=== PATIENT | male | born 1955 | race Caucasian/White ===

== ENCOUNTER 2018-11-26 16:19 | Emergency (ER) | payer OTHER ==
[2018-11-26] MEDS ORDERED: Bupivacaine 0.5% 10 ML SDV INJECT ONE (16:20)
[2018-11-26] MEDS ORDERED: Diphtheria,Pertussis(Acell),Tetanus Vaccine 0.5 ML SDV IM ONE (16:35)
[2018-11-26] MEDS ORDERED: cefTRIAXone 1 GM Vial IM ONE (16:35)
--- NOTE | 2018-11-26 16:39 | EDM.PDOC ---
ED HPI GENERAL MEDICAL PROBLEM - General Stated Complaint: CUT FINGER Time Seen by Provider: 11/26/18 16:19 Source of Information: Reports: Patient, Family History Limitations: Reports: No Limitations - History of Present Illness INITIAL COMMENTS - FREE TEXT/NARRATIVE: 62 y.o.w.m came to the ed shortly after he injured his left index finger tip on a machine at his home. Wound was initially bleeding. Bleeding subsided [employer]. Pt has no DM. No Loss of function of his finger. No N/V/D, No SOB or chest pain. No other acute med issues. 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 02/17/13 11:03 Shock Home Meds: Home Meds Mirtazapine [Remeron] 1 tab PO BEDTIME 02/17/13 [History] Amoxicillin/Clavulanate K [Augmentin 500-125 MG] 1 tab PO Q12H #14 tablet [Rx] Cephalexin [Keflex] 500 mg PO Q6HR #40 capsule 11/26/18 [Rx] Review of Systems - Review of Systems Review Of Systems: See Below Constitutional: Reports: No Symptoms Eyes: Reports: No Symptoms Ears: Reports: No Symptoms Nose: Reports: No Symptoms Mouth/Throat: Reports: No Symptoms Respiratory: Reports: No Symptoms Cardiovascular: Reports: No Symptoms GI/Abdominal: Reports: No Symptoms Genitourinary: Reports: No Symptoms Musculoskeletal: Reports: No Symptoms Skin: Reports: Wound (left index finger) Neurological: Reports: No Symptoms Psychiatric: Reports: No Symptoms ED EXAM, GENERAL - Physical Exam Exam: See Below Exam Limited By: No Limitations General Appearance: Alert, WD/WN, Mild Distress Eye Exam: Bilateral Eye: Normal Inspection Ears: Normal External Exam Ear Exam: Bilateral Ear: Auricle Normal Nose: Normal Inspection Throat/Mouth: Normal Inspection, Normal Lips, Normal Voice, No Airway Compromise Head: Atraumatic, Normocephalic Neck: Normal Inspection, Supple, Non-Tender Respiratory/Chest: No Respiratory Distress, Lungs Clear, Normal Breath Sounds, Chest Non-Tender Cardiovascular: Normal Peripheral Pulses, Regular Rate, Rhythm, No JVD Peripheral Pulses: 2+: Brachial (R) GI/Abdominal: Normal Bowel Sounds (Male) Exam: Deferred Rectal (Males) Exam: Deferred Back Exam: Normal Inspection Extremities: Normal Range of Motion, Non-Tender, Normal Capillary Refill Neurological: Alert, Oriented, CN II-XII Intact, Normal Cognition, Normal Gait Psychiatric: Normal Affect, Normal Mood Skin Exam: Warm, Dry, Normal Color, Wound/Incision (finger tip left index finger LAC) Lymphatic: No Adenopathy ED TRAUMA EXTREMITY PROCEDURES - Laceration/Wound Repair Left Distal Digit - 2nd (Index) Lac/Wound Length In cm: 1.2 Appearance: Subcutaneous, Irregular, Mildly Contaminated Distal NVT: Neuro & Vascular Intact, No Tendon Injury Anesthetic Type: Digital Local Anesthesia - Bupivicaine (Marcaine): 0.5% Plain Local Anesthetic Volume: 5cc Skin Prep: Chlorhexidine (Hibiciens) Saline Irrigation (cc's): 10 Exploration/Debridement/Repair: Wound Explored, In a Bloodless Field, Explored to Base Closed With: Sutures Suture Size: 4-0 # of Sutures: 4 Suture Type: Interrupted Sterile Dressing Applied: Nurse Tetanus Status Addressed: Yes (given today) Complications: No Course - Vital Signs Text/Narrative:: 62 y.o.w.m came to the ed shortly after he injured his left index finger tip on a machine at his home. Wound was initially bleeding. Bleeding subsided [employer]. Pt has no DM. No Loss of function of his finger. No N/V/D, No SOB or chest pain. No other acute med issues. BP 144/75 Pulse ox 97% on RA RR 18 Pulse 93 Temp 36.7 PE: WNWD W M with left index finger tip LAC, Nail involved Imaging: Minor Fx of left index finger tip (distal phalanx) Impression: Laceration left index finger tip, repaired in the ed TxL TD. Deyanira Wound repair/care. Neosporine, Tube gaze Reexam: Improved Plan: D/C with instructions Last Recorded V/S: Last Vital Signs Temp 36.4 C 11/26/18 16:22 Pulse 93 11/26/18 16:22 Resp 18 11/26/18 16:22 BP 144/75 H 11/26/18 16:22 Pulse Ox 97 11/26/18 16:22 - Orders/Labs/Meds Orders: Active Orders 24 hr Category Date Time Status Vaccines to be Administered [RC] PER UNIT ROUTINE Care 11/26/18 16:36 Active Fingers Second Digit Lt F1 [CR] Stat Exams 11/26/18 16:32 Taken Meds: Medications Discontinued Medications Generic Name Dose Route Start Last Admin Trade Name Maryjo PRN Reason Stop Dose Admin Ceftriaxone Sodium 1 gm 11/26/18 16:35 Rocephin IM 11/26/18 16:36 ONETIME ONE Diphtheria/Tetanus/Acell Pertussis 0.5 ml 11/26/18 16:35 Adacel IM 11/26/18 16:36 .ONCE ONE Departure - Departure Time of Disposition: 18:19 Disposition: Home, Self-Care 01 Condition: Good Clinical Impression: Laceration - Discharge Information Prescriptions: Cephalexin [Keflex] 500 mg PO Q6HR #40 capsule Referrals: Aden Ryan MD [Primary Care Provider] - Additional Instructions: Please apply Neosporin ointment to wound twice daily, please take Keflex as recommended, wound check in 2-3 days, suture removal in 10 dais if wound has healed up. Motrin for pain. Please come back if your symptoms get worse acutely - My Orders Last 24 Hours: My Active Orders 11/26/18 16:32 Fingers Second Digit Lt F1 [CR] Stat 11/26/18 16:36 Vaccines to be Administered [RC] PER UNIT ROUTINE - Assessment/Plan Last 24 Hours: My Active Orders 11/26/18 16:32 Fingers Second Digit Lt F1 [CR] Stat 11/26/18 16:36 Vaccines to be Administered [RC] PER UNIT ROUTINE
[2018-11-26 19:16] VITALS: BP 140/68; PULSE 73
== END 2018-11-26 18:50 | disposition home or self-care (01) ==
LOC: FB.ED 16:19
DX: S61.211A Laceration without foreign body of left index finger without damage to nail, initial encounter (principal); Z23 Encounter for immunization; Z91.018 Allergy to other foods; W29.2XXA Contact with other powered household machinery, initial encounter
CPT/HCPCS: 12001; 73140; 90471; 90715; 96372; 99283; J0696; J3490; 12011

== ENCOUNTER 2022-03-04 09:43 | Inpatient (IN) | payer MEDICARE, OTHER ==
[2022-03-04] MEDS ORDERED: hydrOXYzine HCl 25 MG Tab PO PRN (16:09)
[2022-03-04] MEDS ORDERED: ALPRAZolam 0.25 MG Tab PO PRN (16:09)
[2022-03-04] MEDS: Tamsulosin 0.4 MG Cap.ER PO SCH (21:15)
[2022-03-04] MEDS: atorvaSTATin 20 MG Tab PO SCH (21:16)
[2022-03-04] MEDS: Mirtazapine 15 MG Tab PO SCH (21:16)
[2022-03-04] MEDS: metFORMIN 500 MG Tab PO SCH (21:16)
[2022-03-05] MEDS: metFORMIN 500 MG Tab PO SCH ×2 (09:24→20:00)
[2022-03-05] MEDS: FLUoxetine 20 MG Cap PO SCH (09:25)
[2022-03-05] MEDS: predniSONE 20 MG Tab PO SCH ×2 (09:25→14:30)
[2022-03-05] MEDS: Lisinopril 10 MG Tab PO SCH (09:25)
[2022-03-05] MEDS: Multivitamin Tab PO SCH (09:25)
[2022-03-05] MEDS: Tamsulosin 0.4 MG Cap.ER PO SCH (19:59)
[2022-03-05] MEDS: Mirtazapine 15 MG Tab PO SCH (19:59)
[2022-03-05] MEDS: atorvaSTATin 20 MG Tab PO SCH (19:59)
[2022-03-06] MEDS: metFORMIN 500 MG Tab PO SCH ×2 (08:20→20:35)
[2022-03-06] MEDS: predniSONE 20 MG Tab PO SCH ×2 (08:20→14:20)
[2022-03-06] MEDS: FLUoxetine 20 MG Cap PO SCH (08:21)
[2022-03-06] MEDS: Lisinopril 10 MG Tab PO SCH (08:21)
[2022-03-06] MEDS: Multivitamin Tab PO SCH (08:22)
[2022-03-06] MEDS: atorvaSTATin 20 MG Tab PO SCH (20:18)
[2022-03-06] MEDS: Tamsulosin 0.4 MG Cap.ER PO SCH (20:18)
[2022-03-06] MEDS: Mirtazapine 15 MG Tab PO SCH (20:35)
[2022-03-07] MEDS: Lisinopril 10 MG Tab PO SCH (08:31)
[2022-03-07] MEDS: Multivitamin Tab PO SCH (08:31)
[2022-03-07] MEDS: metFORMIN 500 MG Tab PO SCH ×2 (08:31→20:06)
[2022-03-07] MEDS: predniSONE 20 MG Tab PO SCH ×2 (08:31→14:00)
[2022-03-07] MEDS: FLUoxetine 20 MG Cap PO SCH (08:31)
[2022-03-07] MEDS: atorvaSTATin 20 MG Tab PO SCH (20:05)
[2022-03-07] MEDS: Tamsulosin 0.4 MG Cap.ER PO SCH (20:06)
[2022-03-07] MEDS: Acetaminophen 325 MG Tab PO PRN (20:07)
[2022-03-07] MEDS: Mirtazapine 15 MG Tab PO SCH (20:07)
[2022-03-08] MEDS: metFORMIN 500 MG Tab PO SCH ×2 (08:47→20:31)
[2022-03-08] MEDS: Lisinopril 10 MG Tab PO SCH (08:48)
[2022-03-08] MEDS: predniSONE 20 MG Tab PO SCH (08:48)
[2022-03-08] MEDS: FLUoxetine 20 MG Cap PO SCH (08:48)
[2022-03-08] MEDS: Multivitamin Tab PO SCH (08:48)
[2022-03-08] MEDS: Acetaminophen 325 MG Tab PO PRN (13:41)
[2022-03-08] MEDS: Tamsulosin 0.4 MG Cap.ER PO SCH (20:31)
[2022-03-08] MEDS: atorvaSTATin 20 MG Tab PO SCH (20:31)
[2022-03-08] MEDS: Mirtazapine 15 MG Tab PO SCH (20:31)
[2022-03-09] MEDS: FLUoxetine 20 MG Cap PO SCH (08:34)
[2022-03-09] MEDS: Lisinopril 10 MG Tab PO SCH (08:34)
[2022-03-09] MEDS: predniSONE 20 MG Tab PO SCH (08:34)
[2022-03-09] MEDS: metFORMIN 500 MG Tab PO SCH ×2 (08:34→20:54)
[2022-03-09] MEDS: Multivitamin Tab PO SCH (08:35)
[2022-03-09] MEDS: Acetaminophen 325 MG Tab PO PRN (13:57)
[2022-03-09] MEDS: Mirtazapine 15 MG Tab PO SCH (20:53)
[2022-03-09] MEDS: Tamsulosin 0.4 MG Cap.ER PO SCH (20:53)
[2022-03-09] MEDS: atorvaSTATin 20 MG Tab PO SCH (20:53)
[2022-03-10] MEDS: Lisinopril 10 MG Tab PO SCH (08:06)
[2022-03-10] MEDS: predniSONE 20 MG Tab PO SCH (08:06)
[2022-03-10] MEDS: Multivitamin Tab PO SCH (08:06)
[2022-03-10] MEDS: FLUoxetine 20 MG Cap PO SCH (08:07)
[2022-03-10] MEDS: metFORMIN 500 MG Tab PO SCH ×2 (08:07→20:37)
[2022-03-10] MEDS: atorvaSTATin 20 MG Tab PO SCH (20:37)
[2022-03-10] MEDS: Mirtazapine 15 MG Tab PO SCH (20:37)
[2022-03-10] MEDS: Tamsulosin 0.4 MG Cap.ER PO SCH (20:37)
[2022-03-11] MEDS: FLUoxetine 20 MG Cap PO SCH (08:06)
[2022-03-11] MEDS: predniSONE 10 MG Tab PO SCH (08:06)
[2022-03-11] MEDS: metFORMIN 500 MG Tab PO SCH ×2 (08:07→21:01)
[2022-03-11] MEDS: Multivitamin Tab PO SCH (08:07)
[2022-03-11] MEDS: Lisinopril 10 MG Tab PO SCH (08:07)
[2022-03-11] MEDS: Mirtazapine 15 MG Tab PO SCH (21:01)
[2022-03-11] MEDS: atorvaSTATin 20 MG Tab PO SCH (21:02)
[2022-03-11] MEDS: Tamsulosin 0.4 MG Cap.ER PO SCH (21:02)
[2022-03-12] MEDS: FLUoxetine 20 MG Cap PO SCH (08:05)
[2022-03-12] MEDS: Multivitamin Tab PO SCH (08:05)
[2022-03-12] MEDS: predniSONE 10 MG Tab PO SCH (08:06)
[2022-03-12] MEDS: metFORMIN 500 MG Tab PO SCH ×2 (08:06→20:46)
[2022-03-12] MEDS: Lisinopril 10 MG Tab PO SCH (08:11)
[2022-03-12] MEDS: Acetaminophen 325 MG Tab PO PRN (15:20)
[2022-03-12] MEDS: Mirtazapine 15 MG Tab PO SCH (20:46)
[2022-03-12] MEDS: Tamsulosin 0.4 MG Cap.ER PO SCH (20:46)
[2022-03-12] MEDS: atorvaSTATin 20 MG Tab PO SCH (20:46)
[2022-03-13 07:11] VITALS: PULSE 63
[2022-03-13] MEDS: predniSONE 10 MG Tab PO SCH (08:45)
[2022-03-13] MEDS: Lisinopril 10 MG Tab PO SCH (08:45)
[2022-03-13] MEDS: metFORMIN 500 MG Tab PO SCH (08:45)
[2022-03-13] MEDS: Multivitamin Tab PO SCH (08:46)
[2022-03-13] MEDS: FLUoxetine 20 MG Cap PO SCH (08:46)
[2022-03-13 08:47] VITALS: BP 139/69
== END 2022-03-13 13:45 | disposition home health service (06) | DRG 948 ==
LOC: FB.MS 12:24
PROVIDERS: ADMIT Student in an Organized Health Care Education/Training Program; ATTEND Family Medicine
DX: R53.1 Weakness (principal); E11.9 Type 2 diabetes mellitus without complications; F32.A Depression, unspecified; I10 Essential (primary) hypertension; M48.061 Spinal stenosis, lumbar region without neurogenic claudication; U09.9 Post COVID-19 condition, unspecified; E66.01 Morbid (severe) obesity due to excess calories; M54.50 Low back pain, unspecified; Z85.46 Personal history of malignant neoplasm of prostate; Z79.84 Long term (current) use of oral hypoglycemic drugs; Z87.891 Personal history of nicotine dependence; Z68.32 Body mass index [BMI] 32.0-32.9, adult
CPT/HCPCS: 82947; 97110-GO; 97110-GP; 97161-GP; 97165-GO; 97530-GO; 97530-GP; 97535-GO; A9270-GY; J7512

== ENCOUNTER 2022-05-19 08:40 | Inpatient (IN) | payer MEDICARE ==
[2022-05-19] MEDS ORDERED: Acetaminophen 325 MG Tab PO PRN (14:25)
[2022-05-19] MEDS ORDERED: ALPRAZolam 0.25 MG Tab PO PRN (14:25)
[2022-05-19] MEDS ORDERED: NALOXONE HCL 4 MG NAS PRN (14:25)
[2022-05-19] MEDS ORDERED: Naloxone 0.4 MG/ML SDV IVPUSH PRN (14:44)
[2022-05-19] MEDS: oxyCODONE 5 MG Tab PO PRN (14:56)
[2022-05-19] MEDS: Cyclobenzaprine 10 MG Tab PO PRN (15:06)
[2022-05-19] MEDS: cefTRIAXone 2 GM Vial IVPUSH SCH (15:08)
[2022-05-19] MEDS: Sodium Chloride 0.9% 10 ML Syringe FLUSH PRN (15:20)
[2022-05-19] MEDS: Ibuprofen 200 MG Tab PO SCH ×2 (17:07→23:08)
[2022-05-19] MEDS: Acetaminophen 500 MG Tab PO SCH ×2 (17:08→23:08)
[2022-05-19] MEDS: metFORMIN 500 MG Tab PO SCH (20:08)
[2022-05-19] MEDS: Mirtazapine 15 MG Tab PO SCH (20:10)
[2022-05-20] MEDS: Cyclobenzaprine 10 MG Tab PO PRN ×2 (01:37→08:35)
[2022-05-20] MEDS: oxyCODONE 5 MG Tab PO PRN ×2 (01:37→08:38)
[2022-05-20] MEDS: hydrOXYzine HCl 25 MG Tab PO PRN ×3 (02:48→20:54)
[2022-05-20] MEDS: ALPRAZolam 0.25 MG Tab PO PRN ×2 (04:44→12:49)
[2022-05-20] MEDS: Acetaminophen 500 MG Tab PO SCH ×4 (05:00→20:41)
[2022-05-20] MEDS: Ibuprofen 200 MG Tab PO SCH ×4 (05:00→20:45)
[2022-05-20] MEDS: metFORMIN 500 MG Tab PO SCH ×2 (08:32→20:46)
[2022-05-20] MEDS: Tamsulosin 0.4 MG Cap.ER PO SCH (08:32)
[2022-05-20] MEDS: Lisinopril 10 MG Tab PO SCH (08:33)
[2022-05-20] MEDS: atorvaSTATin 20 MG Tab PO SCH (08:33)
[2022-05-20] MEDS: Multivitamin Tab PO SCH (08:34)
[2022-05-20] MEDS: FLUoxetine 20 MG Cap PO SCH (08:34)
[2022-05-20] MEDS ORDERED: fentaNYL 25 MCG/HR Transdermal Patch TRDERM SCH (12:45)
[2022-05-20] MEDS: Bisacodyl 5 MG Tab PO PRN (12:48)
[2022-05-20] MEDS: Polyethylene Glycol 3350 Powder 17 GM Packet PO SCH ×2 (12:48→20:40)
[2022-05-20] MEDS: Baclofen 10 MG Tab PO SCH ×2 (14:10→20:43)
[2022-05-20] MEDS: Sodium Chloride 0.9% 10 ML Syringe FLUSH PRN (14:28)
[2022-05-20] MEDS: cefTRIAXone 2 GM Vial IVPUSH SCH (14:29)
[2022-05-20] MEDS: ALPRAZolam 0.5 MG Tab PO PRN (16:49)
[2022-05-20] MEDS: Mirtazapine 15 MG Tab PO SCH (20:46)
[2022-05-21] MEDS: ALPRAZolam 0.5 MG Tab PO PRN (02:09)
[2022-05-21] MEDS: oxyCODONE 5 MG Tab PO PRN ×2 (02:09→08:37)
[2022-05-21] MEDS: Tamsulosin 0.4 MG Cap.ER PO SCH (08:31)
[2022-05-21] MEDS: metFORMIN 500 MG Tab PO SCH ×2 (08:31→20:40)
[2022-05-21] MEDS: Polyethylene Glycol 3350 Powder 17 GM Packet PO SCH ×2 (08:32→20:41)
[2022-05-21] MEDS: atorvaSTATin 20 MG Tab PO SCH (08:32)
[2022-05-21] MEDS: Baclofen 10 MG Tab PO SCH ×3 (08:32→20:40)
[2022-05-21] MEDS: Ibuprofen 200 MG Tab PO SCH ×4 (08:33→20:41)
[2022-05-21] MEDS: Lisinopril 10 MG Tab PO SCH (08:36)
[2022-05-21] MEDS: FLUoxetine 20 MG Cap PO SCH (08:36)
[2022-05-21] MEDS: Acetaminophen 500 MG Tab PO SCH ×4 (08:36→20:42)
[2022-05-21] MEDS: Multivitamin Tab PO SCH (08:36)
[2022-05-21] MEDS: hydrOXYzine HCl 25 MG Tab PO PRN (08:37)
[2022-05-21] MEDS: Sodium Chloride 0.9% 10 ML Syringe FLUSH PRN ×2 (15:00→15:01)
[2022-05-21] MEDS: cefTRIAXone 2 GM Vial IVPUSH SCH (15:00)
[2022-05-21] MEDS: fentaNYL 12 MCG/HR Transdermal Patch TRDERM SCH (16:31)
[2022-05-21] MEDS: Mirtazapine 15 MG Tab PO SCH (20:41)
[2022-05-22] MEDS: oxyCODONE 5 MG Tab PO PRN (05:20)
[2022-05-22] MEDS: FLUoxetine 20 MG Cap PO SCH (08:41)
[2022-05-22] MEDS: metFORMIN 500 MG Tab PO SCH ×2 (08:41→20:57)
[2022-05-22] MEDS: Baclofen 10 MG Tab PO SCH ×3 (08:41→20:57)
[2022-05-22] MEDS: Lisinopril 10 MG Tab PO SCH (08:41)
[2022-05-22] MEDS: Tamsulosin 0.4 MG Cap.ER PO SCH (08:41)
[2022-05-22] MEDS: atorvaSTATin 20 MG Tab PO SCH (08:41)
[2022-05-22] MEDS: Ibuprofen 200 MG Tab PO SCH ×4 (08:41→20:57)
[2022-05-22] MEDS: Acetaminophen 500 MG Tab PO SCH ×4 (08:42→20:58)
[2022-05-22] MEDS: Polyethylene Glycol 3350 Powder 17 GM Packet PO SCH ×2 (08:42→20:57)
[2022-05-22] MEDS: Multivitamin Tab PO SCH (08:42)
[2022-05-22] MEDS: Bisacodyl 5 MG Tab PO PRN (08:46)
[2022-05-22] MEDS ORDERED: Baclofen 10 MG Tab PO PRN (13:21)
[2022-05-22] MEDS: Sodium Chloride 0.9% 10 ML Syringe FLUSH PRN (14:47)
[2022-05-22] MEDS: cefTRIAXone 2 GM Vial IVPUSH SCH (14:48)
[2022-05-22] MEDS: ALPRAZolam 0.5 MG Tab PO PRN (14:52)
[2022-05-22] MEDS: Mirtazapine 15 MG Tab PO SCH (20:58)
[2022-05-23] MEDS: oxyCODONE 5 MG Tab PO PRN ×2 (04:13→15:33)
[2022-05-23] MEDS ORDERED: FENTANYL PATCH TRDERM SCH (09:00)
[2022-05-23] MEDS ORDERED: fentaNYL 25 MCG/HR Transdermal Patch TRDERM SCH (09:00)
[2022-05-23] MEDS: Tamsulosin 0.4 MG Cap.ER PO SCH (09:02)
[2022-05-23] MEDS: metFORMIN 500 MG Tab PO SCH ×2 (09:03→21:16)
[2022-05-23] MEDS: Baclofen 10 MG Tab PO SCH ×3 (09:06→21:17)
[2022-05-23] MEDS: Ibuprofen 200 MG Tab PO SCH ×4 (09:13→21:17)
[2022-05-23] MEDS: Acetaminophen 500 MG Tab PO SCH ×4 (09:14→21:18)
[2022-05-23] MEDS: Lisinopril 10 MG Tab PO SCH (09:16)
[2022-05-23] MEDS: FLUoxetine 20 MG Cap PO SCH (09:19)
[2022-05-23] MEDS: Multivitamin Tab PO SCH (09:20)
[2022-05-23] MEDS: atorvaSTATin 20 MG Tab PO SCH (09:30)
[2022-05-23] MEDS: Polyethylene Glycol 3350 Powder 17 GM Packet PO SCH ×2 (09:31→21:21)
[2022-05-23] MEDS: ALPRAZolam 0.5 MG Tab PO PRN (10:18)
[2022-05-23] MEDS: cefTRIAXone 2 GM Vial IVPUSH SCH (14:32)
[2022-05-23] MEDS: Sodium Chloride 0.9% 10 ML Syringe FLUSH PRN ×2 (14:32→14:33)
[2022-05-23] MEDS: hydrOXYzine HCl 25 MG Tab PO SCH ×2 (19:35→21:16)
[2022-05-23] MEDS: Mirtazapine 15 MG Tab PO SCH (21:17)
[2022-05-24] MEDS: oxyCODONE 5 MG Tab PO PRN (07:41)
[2022-05-24] MEDS: Tamsulosin 0.4 MG Cap.ER PO SCH (09:12)
[2022-05-24] MEDS: metFORMIN 500 MG Tab PO SCH ×2 (09:12→20:46)
[2022-05-24] MEDS: Baclofen 10 MG Tab PO SCH ×3 (09:13→20:47)
[2022-05-24] MEDS: Ibuprofen 200 MG Tab PO SCH ×4 (09:13→20:47)
[2022-05-24] MEDS: atorvaSTATin 20 MG Tab PO SCH (09:13)
[2022-05-24] MEDS: Polyethylene Glycol 3350 Powder 17 GM Packet PO SCH ×2 (09:13→20:48)
[2022-05-24] MEDS: Multivitamin Tab PO SCH (09:14)
[2022-05-24] MEDS: Acetaminophen 500 MG Tab PO SCH ×4 (09:14→20:46)
[2022-05-24] MEDS: FLUoxetine 20 MG Cap PO SCH (09:14)
[2022-05-24] MEDS: Lisinopril 10 MG Tab PO SCH (09:14)
[2022-05-24] MEDS: hydrOXYzine HCl 25 MG Tab PO SCH ×2 (10:18→20:51)
[2022-05-24] MEDS: cefTRIAXone 2 GM Vial IVPUSH SCH (14:30)
[2022-05-24] MEDS: Sodium Chloride 0.9% 10 ML Syringe FLUSH PRN ×2 (14:31→14:32)
[2022-05-24] MEDS: fentaNYL 12 MCG/HR Transdermal Patch TRDERM SCH (16:12)
[2022-05-24] MEDS: Mirtazapine 15 MG Tab PO SCH (20:47)
[2022-05-25] MEDS: Sodium Chloride 0.9% 10 ML Syringe FLUSH PRN ×3 (06:30→13:37)
[2022-05-25] MEDS: oxyCODONE 5 MG Tab PO PRN (06:42)
[2022-05-25 06:55] LABS: ESTIMATED GFR 74 mL/min (>60)
[2022-05-25] MEDS: metFORMIN 500 MG Tab PO SCH ×2 (08:28→20:59)
[2022-05-25] MEDS: Tamsulosin 0.4 MG Cap.ER PO SCH (08:28)
[2022-05-25] MEDS: hydrOXYzine HCl 25 MG Tab PO SCH (08:28)
[2022-05-25] MEDS: atorvaSTATin 20 MG Tab PO SCH (08:29)
[2022-05-25] MEDS: Baclofen 10 MG Tab PO SCH ×3 (08:29→21:00)
[2022-05-25] MEDS: Polyethylene Glycol 3350 Powder 17 GM Packet PO SCH ×2 (08:30→21:02)
[2022-05-25] MEDS: Lisinopril 10 MG Tab PO SCH (08:30)
[2022-05-25] MEDS: Ibuprofen 200 MG Tab PO SCH ×4 (08:30→21:00)
[2022-05-25] MEDS: FLUoxetine 20 MG Cap PO SCH (08:31)
[2022-05-25] MEDS: Multivitamin Tab PO SCH (08:31)
[2022-05-25] MEDS: Acetaminophen 500 MG Tab PO SCH ×4 (08:31→21:00)
[2022-05-25] MEDS ORDERED: hydrOXYzine HCl 25 MG Tab PO ONE (09:45)
[2022-05-25] MEDS: ALPRAZolam 0.5 MG Tab PO PRN (12:01)
[2022-05-25] MEDS: cefTRIAXone 2 GM Vial IVPUSH SCH (13:32)
[2022-05-25] MEDS: Mirtazapine 15 MG Tab PO SCH (21:00)
[2022-05-25] MEDS: Bisacodyl 5 MG Tab PO PRN (22:53)
[2022-05-26] MEDS: oxyCODONE 5 MG Tab PO PRN (05:51)
[2022-05-26] MEDS: Tamsulosin 0.4 MG Cap.ER PO SCH (09:01)
[2022-05-26] MEDS: metFORMIN 500 MG Tab PO SCH ×2 (09:01→20:23)
[2022-05-26] MEDS: Polyethylene Glycol 3350 Powder 17 GM Packet PO SCH ×2 (09:03→20:25)
[2022-05-26] MEDS: Baclofen 10 MG Tab PO SCH ×3 (09:03→20:24)
[2022-05-26] MEDS: atorvaSTATin 20 MG Tab PO SCH (09:03)
[2022-05-26] MEDS: FLUoxetine 20 MG Cap PO SCH (09:04)
[2022-05-26] MEDS: Ibuprofen 200 MG Tab PO SCH ×4 (09:04→20:26)
[2022-05-26] MEDS: Acetaminophen 500 MG Tab PO SCH ×4 (09:05→20:26)
[2022-05-26] MEDS: Multivitamin Tab PO SCH (09:05)
[2022-05-26] MEDS: Lisinopril 10 MG Tab PO SCH (09:08)
[2022-05-26] MEDS: Lactulose Soln 10 GM/15 ML 30 ML UD Cup PO SCH ×2 (09:35→13:57)
[2022-05-26] MEDS ORDERED: Bisacodyl 10 MG Supp RECTAL PRN (13:02)
[2022-05-26] MEDS: cefTRIAXone 2 GM Vial IVPUSH SCH (13:57)
[2022-05-26] MEDS: Sodium Chloride 0.9% 10 ML Syringe FLUSH PRN (13:58)
[2022-05-26] MEDS: Mirtazapine 15 MG Tab PO SCH (20:27)
[2022-05-27] MEDS: oxyCODONE 5 MG Tab PO PRN ×2 (03:32→09:51)
[2022-05-27] MEDS: Lisinopril 10 MG Tab PO SCH (07:59)
[2022-05-27] MEDS: atorvaSTATin 20 MG Tab PO SCH (07:59)
[2022-05-27] MEDS: Baclofen 10 MG Tab PO SCH ×3 (07:59→20:40)
[2022-05-27] MEDS: Tamsulosin 0.4 MG Cap.ER PO SCH (07:59)
[2022-05-27] MEDS: metFORMIN 500 MG Tab PO SCH ×2 (07:59→20:40)
[2022-05-27] MEDS: Acetaminophen 500 MG Tab PO SCH ×4 (08:00→20:43)
[2022-05-27] MEDS: Ibuprofen 200 MG Tab PO SCH ×4 (08:00→20:41)
[2022-05-27] MEDS: Polyethylene Glycol 3350 Powder 17 GM Packet PO SCH ×2 (08:02→20:41)
[2022-05-27] MEDS: Multivitamin Tab PO SCH (08:03)
[2022-05-27] MEDS: FLUoxetine 20 MG Cap PO SCH (08:03)
[2022-05-27] MEDS: Sodium Chloride 0.9% 10 ML Syringe FLUSH PRN ×2 (14:14→14:25)
[2022-05-27] MEDS: cefTRIAXone 2 GM Vial IVPUSH SCH (14:15)
[2022-05-27] MEDS: Mirtazapine 15 MG Tab PO SCH (20:42)
[2022-05-27] MEDS: ALPRAZolam 0.5 MG Tab PO PRN (23:38)
[2022-05-28] MEDS: Baclofen 10 MG Tab PO SCH ×3 (08:24→21:42)
[2022-05-28] MEDS: Tamsulosin 0.4 MG Cap.ER PO SCH (08:25)
[2022-05-28] MEDS: metFORMIN 500 MG Tab PO SCH ×2 (08:25→21:41)
[2022-05-28] MEDS: Multivitamin Tab PO SCH (08:25)
[2022-05-28] MEDS: atorvaSTATin 20 MG Tab PO SCH (08:25)
[2022-05-28] MEDS: Acetaminophen 500 MG Tab PO SCH ×4 (08:26→21:44)
[2022-05-28] MEDS: FLUoxetine 20 MG Cap PO SCH (08:26)
[2022-05-28] MEDS: Ibuprofen 200 MG Tab PO SCH ×4 (08:26→21:42)
[2022-05-28] MEDS: Polyethylene Glycol 3350 Powder 17 GM Packet PO SCH ×2 (08:26→21:42)
[2022-05-28] MEDS: Lisinopril 10 MG Tab PO SCH (08:26)
[2022-05-28] MEDS: oxyCODONE 5 MG Tab PO PRN (09:39)
[2022-05-28] MEDS: Sodium Chloride 0.9% 10 ML Syringe FLUSH PRN ×2 (14:05→14:16)
[2022-05-28] MEDS: cefTRIAXone 2 GM Vial IVPUSH SCH (14:06)
[2022-05-28] MEDS: Mirtazapine 15 MG Tab PO SCH (21:45)
[2022-05-28] MEDS: ALPRAZolam 0.5 MG Tab PO PRN (21:55)
[2022-05-29] MEDS: Tamsulosin 0.4 MG Cap.ER PO SCH (08:28)
[2022-05-29] MEDS: metFORMIN 500 MG Tab PO SCH ×2 (08:29→21:50)
[2022-05-29] MEDS: Baclofen 10 MG Tab PO SCH ×3 (08:30→21:51)
[2022-05-29] MEDS: atorvaSTATin 20 MG Tab PO SCH (08:30)
[2022-05-29] MEDS: Ibuprofen 200 MG Tab PO SCH ×4 (08:31→21:50)
[2022-05-29] MEDS: Polyethylene Glycol 3350 Powder 17 GM Packet PO SCH ×2 (08:31→21:52)
[2022-05-29] MEDS: Lisinopril 10 MG Tab PO SCH (08:32)
[2022-05-29] MEDS: Multivitamin Tab PO SCH (08:33)
[2022-05-29] MEDS: FLUoxetine 20 MG Cap PO SCH (08:33)
[2022-05-29] MEDS: Acetaminophen 500 MG Tab PO SCH ×4 (08:33→21:50)
[2022-05-29] MEDS: Sodium Chloride 0.9% 10 ML Syringe FLUSH PRN ×2 (14:21→14:26)
[2022-05-29] MEDS: cefTRIAXone 2 GM Vial IVPUSH SCH (14:23)
[2022-05-29] MEDS: Mirtazapine 15 MG Tab PO SCH (21:52)
[2022-05-30] MEDS: oxyCODONE 5 MG Tab PO PRN (05:56)
[2022-05-30] MEDS: Polyethylene Glycol 3350 Powder 17 GM Packet PO SCH ×2 (08:44→20:39)
[2022-05-30] MEDS: Tamsulosin 0.4 MG Cap.ER PO SCH (08:45)
[2022-05-30] MEDS: Acetaminophen 500 MG Tab PO SCH ×4 (08:46→20:41)
[2022-05-30] MEDS: Baclofen 10 MG Tab PO SCH ×3 (08:48→20:37)
[2022-05-30] MEDS: Lisinopril 10 MG Tab PO SCH (08:48)
[2022-05-30] MEDS: metFORMIN 500 MG Tab PO SCH ×2 (08:49→20:36)
[2022-05-30] MEDS: atorvaSTATin 20 MG Tab PO SCH (08:50)
[2022-05-30] MEDS: Ibuprofen 200 MG Tab PO SCH ×4 (08:51→20:39)
[2022-05-30] MEDS: FLUoxetine 20 MG Cap PO SCH (08:51)
[2022-05-30] MEDS: Multivitamin Tab PO SCH (08:52)
[2022-05-30] MEDS: cefTRIAXone 2 GM Vial IVPUSH SCH (13:29)
[2022-05-30] MEDS: Sodium Chloride 0.9% 10 ML Syringe FLUSH PRN (13:45)
[2022-05-30] MEDS: Mirtazapine 15 MG Tab PO SCH (20:42)
[2022-05-31] MEDS: metFORMIN 500 MG Tab PO SCH ×2 (09:31→20:17)
[2022-05-31] MEDS: FLUoxetine 20 MG Cap PO SCH (09:31)
[2022-05-31] MEDS: Acetaminophen 500 MG Tab PO SCH ×4 (09:32→20:21)
[2022-05-31] MEDS: Baclofen 10 MG Tab PO SCH ×3 (09:32→20:18)
[2022-05-31] MEDS: Tamsulosin 0.4 MG Cap.ER PO SCH (09:32)
[2022-05-31] MEDS: Multivitamin Tab PO SCH (09:33)
[2022-05-31] MEDS: Ibuprofen 200 MG Tab PO SCH ×4 (09:34→20:18)
[2022-05-31] MEDS: atorvaSTATin 20 MG Tab PO SCH (09:35)
[2022-05-31] MEDS: Lisinopril 10 MG Tab PO SCH (09:35)
[2022-05-31] MEDS: Polyethylene Glycol 3350 Powder 17 GM Packet PO SCH ×2 (09:36→20:18)
[2022-05-31] MEDS: Sodium Chloride 0.9% 10 ML Syringe FLUSH PRN ×2 (14:35→14:43)
[2022-05-31] MEDS: cefTRIAXone 2 GM Vial IVPUSH SCH (14:35)
[2022-05-31] MEDS: oxyCODONE 5 MG Tab PO PRN (16:31)
[2022-05-31] MEDS: Mirtazapine 15 MG Tab PO SCH (20:20)
[2022-06-01 06:58] LABS: ESTIMATED GFR 74 mL/min (>60)
[2022-06-01] MEDS: Tamsulosin 0.4 MG Cap.ER PO SCH (08:00)
[2022-06-01] MEDS: metFORMIN 500 MG Tab PO SCH ×2 (08:00→21:41)
[2022-06-01] MEDS: Ibuprofen 200 MG Tab PO SCH ×4 (08:01→21:42)
[2022-06-01] MEDS: Baclofen 10 MG Tab PO SCH ×3 (08:01→21:41)
[2022-06-01] MEDS: atorvaSTATin 20 MG Tab PO SCH (08:01)
[2022-06-01] MEDS: Acetaminophen 500 MG Tab PO SCH ×4 (08:03→21:44)
[2022-06-01] MEDS: Multivitamin Tab PO SCH (08:03)
[2022-06-01] MEDS: FLUoxetine 20 MG Cap PO SCH (08:03)
[2022-06-01] MEDS: Lisinopril 10 MG Tab PO SCH (08:03)
[2022-06-01] MEDS: Polyethylene Glycol 3350 Powder 17 GM Packet PO SCH ×3 (08:04→21:46)
[2022-06-01] MEDS: cefTRIAXone 2 GM Vial IVPUSH SCH (13:07)
[2022-06-01] MEDS: Sodium Chloride 0.9% 10 ML Syringe FLUSH PRN (13:07)
[2022-06-01] MEDS: Mirtazapine 15 MG Tab PO SCH (21:43)
[2022-06-02] MEDS: oxyCODONE 5 MG Tab PO PRN (07:22)
[2022-06-02] MEDS: Baclofen 10 MG Tab PO SCH ×3 (08:50→21:49)
[2022-06-02] MEDS: Ibuprofen 200 MG Tab PO SCH ×4 (08:50→21:50)
[2022-06-02] MEDS: Acetaminophen 500 MG Tab PO SCH ×4 (08:50→21:51)
[2022-06-02] MEDS: Multivitamin Tab PO SCH (08:50)
[2022-06-02] MEDS: metFORMIN 500 MG Tab PO SCH ×2 (08:51→21:49)
[2022-06-02] MEDS: atorvaSTATin 20 MG Tab PO SCH (08:51)
[2022-06-02] MEDS: FLUoxetine 20 MG Cap PO SCH (08:51)
[2022-06-02] MEDS: Tamsulosin 0.4 MG Cap.ER PO SCH (08:51)
[2022-06-02] MEDS: Lisinopril 10 MG Tab PO SCH (08:52)
[2022-06-02] MEDS: Polyethylene Glycol 3350 Powder 17 GM Packet PO SCH ×2 (08:52→21:50)
[2022-06-02] MEDS: cefTRIAXone 2 GM Vial IVPUSH SCH (12:48)
[2022-06-02] MEDS: Sodium Chloride 0.9% 10 ML Syringe FLUSH PRN (12:55)
[2022-06-02] MEDS: Mirtazapine 15 MG Tab PO SCH (21:51)
[2022-06-03] MEDS: oxyCODONE 5 MG Tab PO PRN (03:09)
[2022-06-03] MEDS: FLUoxetine 20 MG Cap PO SCH (08:17)
[2022-06-03] MEDS: metFORMIN 500 MG Tab PO SCH ×2 (08:17→20:40)
[2022-06-03] MEDS: Tamsulosin 0.4 MG Cap.ER PO SCH (08:17)
[2022-06-03] MEDS: Ibuprofen 200 MG Tab PO SCH ×4 (08:18→20:40)
[2022-06-03] MEDS: Baclofen 10 MG Tab PO SCH ×3 (08:18→20:40)
[2022-06-03] MEDS: atorvaSTATin 20 MG Tab PO SCH (08:18)
[2022-06-03] MEDS: Acetaminophen 500 MG Tab PO SCH ×4 (08:18→20:41)
[2022-06-03] MEDS: Lisinopril 10 MG Tab PO SCH (08:18)
[2022-06-03] MEDS: Multivitamin Tab PO SCH (08:18)
[2022-06-03] MEDS: Polyethylene Glycol 3350 Powder 17 GM Packet PO SCH ×2 (08:19→20:39)
[2022-06-03] MEDS: Sodium Chloride 0.9% 10 ML Syringe FLUSH PRN ×2 (11:10→11:16)
[2022-06-03] MEDS: cefTRIAXone 2 GM Vial IVPUSH SCH (11:10)
[2022-06-03] MEDS: Mirtazapine 15 MG Tab PO SCH (20:41)
[2022-06-04] MEDS: oxyCODONE 5 MG Tab PO PRN ×2 (03:12→09:15)
[2022-06-04 03:22] VITALS: BP 149/85; PULSE 85
[2022-06-04] MEDS: Ibuprofen 200 MG Tab PO SCH (08:12)
[2022-06-04] MEDS: Acetaminophen 500 MG Tab PO SCH (08:13)
[2022-06-04] MEDS: metFORMIN 500 MG Tab PO SCH (08:13)
[2022-06-04] MEDS: atorvaSTATin 20 MG Tab PO SCH (08:13)
[2022-06-04] MEDS: Multivitamin Tab PO SCH (08:13)
[2022-06-04] MEDS: FLUoxetine 20 MG Cap PO SCH (08:13)
[2022-06-04] MEDS: Tamsulosin 0.4 MG Cap.ER PO SCH (08:13)
[2022-06-04] MEDS: Baclofen 10 MG Tab PO SCH (08:13)
[2022-06-04] MEDS: Lisinopril 10 MG Tab PO SCH (08:14)
[2022-06-04] MEDS: Polyethylene Glycol 3350 Powder 17 GM Packet PO SCH (08:14)
[2022-06-04] MEDS: cefTRIAXone 2 GM Vial IVPUSH SCH (09:20)
[2022-06-04] MEDS: Sodium Chloride 0.9% 10 ML Syringe FLUSH PRN (09:26)
== END 2022-06-04 10:15 | disposition home or self-care (01) | DRG 552 ==
LOC: FB.MS 14:07 → UNDOADMIN 14:07
PROVIDERS: ADMIT Family Medicine; ATTEND Student in an Organized Health Care Education/Training Program
DX: M46.46 Discitis, unspecified, lumbar region (principal); M46.26 Osteomyelitis of vertebra, lumbar region; E11.69 Type 2 diabetes mellitus with other specified complication; R33.9 Retention of urine, unspecified; R53.1 Weakness; F32.A Depression, unspecified; M48.061 Spinal stenosis, lumbar region without neurogenic claudication; E66.01 Morbid (severe) obesity due to excess calories; H54.7 Unspecified visual loss; G89.29 Other chronic pain; F41.9 Anxiety disorder, unspecified; Z98.49 Cataract extraction status, unspecified eye; Z85.46 Personal history of malignant neoplasm of prostate; Z91.018 Allergy to other foods; Z79.84 Long term (current) use of oral hypoglycemic drugs; Z79.899 Other long term (current) drug therapy; Z68.32 Body mass index [BMI] 32.0-32.9, adult
CPT/HCPCS: 36415; 51701; 51702; 80053; 82947; 85025; 85651; 86140; 97110-GO; 97110-GP; 97116-GP; 97140-GP; 97161-GP; 97165-GO; 97530-GO; 97530-GP; 97535-GO; 97542-GO; 99305; 99315; A9270-GY; G0103; J0696; J1642; J3490

== ENCOUNTER 2022-11-30 02:03 | Emergency (ER) | payer MEDICARE ==
[2022-11-30 02:36] VITALS: BP 125/68; PULSE 87
== END 2022-11-30 02:38 | disposition home or self-care (01) ==
LOC: FB.ED 02:03
DX: T83.038A Leakage of other urinary catheter, initial encounter (principal); R33.9 Retention of urine, unspecified; I10 Essential (primary) hypertension; J45.909 Unspecified asthma, uncomplicated; E11.9 Type 2 diabetes mellitus without complications; E66.9 Obesity, unspecified; Z79.899 Other long term (current) drug therapy; Z79.84 Long term (current) use of oral hypoglycemic drugs; Z91.018 Allergy to other foods
CPT/HCPCS: 51798; 99283

== ENCOUNTER 2023-02-10 22:42 | Observation (INO) | payer MEDICARE ==
[2023-02-10 23:14] LABS: HEMATOCRIT 33.1 % (38.3-50.1); HEMOGLOBIN 11.3 g/dL (12.9-17.7); MEAN CORPUSCULAR HEMOGLOBIN 28.5 pg (27.0-33.3); MEAN CORPUSCULAR HGB CONC 34.2 g/dL (28.7-35.3); MEAN CORPUSCULAR VOLUME 83.6 fL (80.8-98.7); MEAN PLATELET VOLUME 5.7 fL (6.7-11.0); PLATELET COUNT,PLT 486 x10(3)uL (117-477); RED BLOOD CELL COUNT 3.96 x10(6)uL (3.90-5.90); RED CELL DISTRIBUTION WIDTH 17.2 % (12.4-15.0); WHITE BLOOD CELL COUNT,WBC 16.5 x10-3/uL (3.2-10.1)
[2023-02-10 23:16] LABS: BLOOD UREA NITROGEN,BUN 17 mg/dL (7-18); BUN/CREATININE RATIO 12.1 (9-20); CALCIUM 8.8 mg/dL (8.6-10.2); CARBON DIOXIDE,CO2 26 mmol/L (21-32); CHLORIDE,CL 101 mmol/L (100-110); CREATININE 1.4 mg/dL (0.70-1.30); ESTIMATED GFR 55 mL/min (>60); GLUCOSE RANDOM 193 mg/dL (80-116); POTASSIUM,K 3.9 mmol/L (3.5-5.3); SODIUM,NA 137 mmol/L (135-145)
[2023-02-10 23:25] LABS: A/G RATIO 0.8; ALANINE AMINOTRANSFERASE,ALT 18 U/L (12-36); ALBUMIN 3.1 g/dL (3.2-4.6); ALKALINE PHOSPHATASE 137 IU/L (56-112); ASPARTATE AMNIOTRANSFERASE,AST 15 IU/L (5-25); BAND PERCENT MAN 3 % (0-6); BILIRUBIN TOTAL 0.9 mg/dL (0.1-1.3); C-REACTIVE PROTEIN 2.49 mg/dL (<0.33); EOSINOPHILS PERCENT MAN 1 % (0-5); LYMPHOCYTES PERCENT MAN 2 % (13-37); MAGNESIUM 1.6 mg/dL (1.8-2.5); MONOCYTES PERCENT MAN 3 % (4-12); SEG NEUTROPHILS PERCENT MAN 91 % (46-82); TROPONIN I 52.9 pg/mL (4.0-60.3)
[2023-02-10] MEDS ORDERED: Sodium Chloride 0.9% 10 ML Syringe FLUSH PRN (23:44)
[2023-02-10] MEDS ORDERED: Sodium Chloride 0.9% 1,000 ML IV ONE (23:44)
[2023-02-10] MEDS ORDERED: Magnesium Sulfate/Water 2 GM in Premix Bag 1 BAG IV ONE (23:46)
[2023-02-11 00:44] LABS: BILIRUBIN,URINE NEGATIVE (NEGATIVE); GLUCOSE,URINE NORMAL (NORMAL); KETONES,URINE NEGATIVE (NEGATIVE); LEUKOCYTE ESTERASE,URINE LARGE (NEGATIVE); NITRITE,URINE NEGATIVE (NEGATIVE); OCCULT BLOOD,URINE MODERATE (NEGATIVE); PROTEIN,URINE TRACE mg/dL (NEGATIVE); UROBILINOGEN,URINE 1 mg/dL (NEGATIVE)
[2023-02-11 00:53] LABS: APPEARANCE,URINE CLOUDY (CLEAR); COLOR,URINE YELLOW (YELLOW); RBC,URINE 0-5 (0-5)
[2023-02-11 00:54] LABS: BACTERIA,URINE MANY (NS); SQUAMOUS EPITHELIAL CELLS,UR OCCASIONAL (NS,R,O)
[2023-02-11] MEDS ORDERED: cefTRIAXone 1 GM Vial IVPUSH ONE (01:14)
[2023-02-11] MEDS: Sodium Chloride 0.9% 1,000 ML IV SCH ×2 (01:14→11:14)
[2023-02-11 01:23] LABS: INFLUENZA A NAA NEGATIVE (NEGATIVE); INFLUENZA B NAA NEGATIVE (NEGATIVE); RESPIRATORY SYNCYTIAL VIR NAA NEGATIVE (NEGATIVE)
[2023-02-11 01:24] LABS: CORONAVIRUS COVID-19 NAA NEGATIVE (NEGATIVE)
[2023-02-11] MEDS ORDERED: Ondansetron 4 MG/2 ML SDV IV PRN (01:30)
[2023-02-11] MEDS ORDERED: oxyCODONE 5 MG Tab PO PRN (01:30)
[2023-02-11] MEDS ORDERED: Glucagon,Human Recombinant 1 MG Vial IM PRN (01:34)
[2023-02-11] MEDS ORDERED: 50% Dextrose in Water 50 ML Syringe IVPUSH PRN (01:34)
[2023-02-11] MEDS ORDERED: Insulin Regular, Human 100 Units/ML 3 ML Vial SUBCUT SCH (07:30)
[2023-02-11 11:16] LABS: HEMATOCRIT 31.8 % (38.3-50.1); HEMOGLOBIN 10.4 g/dL (12.9-17.7); MEAN CORPUSCULAR HEMOGLOBIN 27.6 pg (27.0-33.3); MEAN CORPUSCULAR HGB CONC 32.8 g/dL (28.7-35.3); MEAN CORPUSCULAR VOLUME 84.2 fL (80.8-98.7); MEAN PLATELET VOLUME 6.2 fL (6.7-11.0); PLATELET COUNT,PLT 490 x10(3)uL (117-477); RED BLOOD CELL COUNT 3.78 x10(6)uL (3.90-5.90); RED CELL DISTRIBUTION WIDTH 17.2 % (12.4-15.0); WHITE BLOOD CELL COUNT,WBC 18.1 x10-3/uL (3.2-10.1)
[2023-02-11 11:18] LABS: BLOOD UREA NITROGEN,BUN 19 mg/dL (7-18); BUN/CREATININE RATIO 13.6 (9-20); CARBON DIOXIDE,CO2 25 mmol/L (21-32); CHLORIDE,CL 102 mmol/L (100-110); CREATININE 1.4 mg/dL (0.70-1.30); EST CRCL DRUG DOSING (CG) 54.53 mL/min; ESTIMATED GFR 55 mL/min (>60); GLUCOSE RANDOM 183 mg/dL (80-116); SODIUM,NA 138 mmol/L (135-145)
[2023-02-11] MEDS ORDERED: Insulin Lispro 100 Unit/ML 3 ML KwikPen SUBCUT ONE (11:23)
[2023-02-11] MEDS: Insulin Lispro 100 Unit/ML 3 ML KwikPen SUBCUT SCH ×3 (11:24→21:21)
[2023-02-11 11:37] LABS: BAND PERCENT MAN 8 % (0-6); LYMPHOCYTES PERCENT MAN 7 % (13-37); MONOCYTES PERCENT MAN 5 % (4-12); SEG NEUTROPHILS PERCENT MAN 80 % (46-82)
[2023-02-11] MEDS ORDERED: cefTRIAXone 1 GM Vial IVPUSH SCH (13:45)
[2023-02-11] MEDS ORDERED: Enoxaparin 40 MG/0.4 ML Syringe SUBCUT SCH (14:00)
[2023-02-11] MEDS: Piperacillin/Tazobactam 3.375 GM in Sodium Chloride 0.9% 50 ML IV SCH ×2 (14:25→19:41)
[2023-02-11] MEDS: Saccharomyces Boulardii (Probiotic) 250 MG Cap PO SCH ×2 (14:25→21:16)
[2023-02-11] MEDS ORDERED: VANCOmycin 2 GM/400 ML 2 GM in Premix Bag 1 BAG IV ONE (14:30)
[2023-02-11] MEDS: FLUoxetine 20 MG Cap PO SCH (15:05)
[2023-02-11] MEDS: hydrOXYzine HCl 25 MG Tab PO PRN (17:27)
[2023-02-11] MEDS ORDERED: Loperamide 2 MG Cap PO PRN (17:32)
[2023-02-11] MEDS ORDERED: Mirtazapine 15 MG Tab PO SCH (21:00)
[2023-02-11] MEDS: Simethicone 80 MG Tab.Chew PO PRN (22:50)
[2023-02-11] MEDS: Acetaminophen 325 MG Tab PO PRN (22:51)
[2023-02-12] MEDS: Sodium Chloride 0.9% 1,000 ML IV SCH (00:25)
[2023-02-12] MEDS: Piperacillin/Tazobactam 3.375 GM in Sodium Chloride 0.9% 50 ML IV SCH ×3 (01:42→13:34)
[2023-02-12] MEDS: Acetaminophen 325 MG Tab PO PRN ×2 (04:26→13:13)
[2023-02-12] MEDS: Insulin Lispro 100 Unit/ML 3 ML KwikPen SUBCUT SCH ×2 (08:26→12:11)
[2023-02-12] MEDS: Saccharomyces Boulardii (Probiotic) 250 MG Cap PO SCH (08:28)
[2023-02-12] MEDS ORDERED: Simethicone 80 MG Tab.Chew PO SCH (09:00)
[2023-02-12] MEDS: FLUoxetine 20 MG Cap PO SCH (09:15)
[2023-02-12] MEDS: Simethicone 80 MG Tab.Chew PO PRN (09:15)
[2023-02-12 09:50] LABS: HEMATOCRIT 26.8 % (38.3-50.1); HEMOGLOBIN 8.9 g/dL (12.9-17.7); MEAN CORPUSCULAR HGB CONC 33.2 g/dL (28.7-35.3); MEAN CORPUSCULAR VOLUME 84.5 fL (80.8-98.7); MEAN PLATELET VOLUME 6.2 fL (6.7-11.0); PLATELET COUNT,PLT 358 x10(3)uL (117-477); RED BLOOD CELL COUNT 3.17 x10(6)uL (3.90-5.90); RED CELL DISTRIBUTION WIDTH 17.3 % (12.4-15.0); WHITE BLOOD CELL COUNT,WBC 13.8 x10-3/uL (3.2-10.1)
[2023-02-12] MEDS: hydrOXYzine HCl 25 MG Tab PO PRN (09:57)
[2023-02-12 10:18] LABS: BAND PERCENT MAN 2 % (0-6); BLOOD UREA NITROGEN,BUN 21 mg/dL (7-18); BUN/CREATININE RATIO 11.1 (9-20); CALCIUM 8.2 mg/dL (8.6-10.2); CARBON DIOXIDE,CO2 23 mmol/L (21-32); CHLORIDE,CL 102 mmol/L (100-110); CREATININE 1.9 mg/dL (0.70-1.30); EST CRCL DRUG DOSING (CG) 40.18 mL/min; ESTIMATED GFR 38 mL/min (>60); GLUCOSE RANDOM 179 mg/dL (80-116); LYMPHOCYTES PERCENT MAN 2 % (13-37); MONOCYTES PERCENT MAN 1 % (4-12); POTASSIUM,K 3.6 mmol/L (3.5-5.3); SEG NEUTROPHILS PERCENT MAN 95 % (46-82); SODIUM,NA 136 mmol/L (135-145)
[2023-02-12] MEDS ORDERED: VANCOmycin 1.5 GM/300 ML 1.5 GM in Premix Bag 1 BAG IV SCH (12:00)
[2023-02-12 14:21] VITALS: BP 115/52; PULSE 98
[2023-02-12] MEDS ORDERED: VANCOmycin 2 GM/400 ML 2 GM in Premix Bag 1 BAG IV ONE (14:30)
== END 2023-02-12 15:20 ==
LOC: FB.ED 22:42 → FB.MS 02-11 01:55
PROVIDERS: ADMIT Emergency Medicine; ATTEND Family Medicine
DX: A41.9 Sepsis, unspecified organism (principal); R53.1 Weakness; N20.1 Calculus of ureter; I10 Essential (primary) hypertension; E11.9 Type 2 diabetes mellitus without complications; J45.909 Unspecified asthma, uncomplicated; E66.9 Obesity, unspecified; Z68.35 Body mass index [BMI] 35.0-35.9, adult; M51.9 Unspecified thoracic, thoracolumbar and lumbosacral intervertebral disc disorder; N39.0 Urinary tract infection, site not specified; N40.0 Benign prostatic hyperplasia without lower urinary tract symptoms; F41.9 Anxiety disorder, unspecified; F32.A Depression, unspecified; E83.42 Hypomagnesemia; M48.061 Spinal stenosis, lumbar region without neurogenic claudication; N17.9 Acute kidney failure, unspecified; E86.0 Dehydration; R19.7 Diarrhea, unspecified; Z20.822 Contact with and (suspected) exposure to COVID-19; Z87.891 Personal history of nicotine dependence; Z79.84 Long term (current) use of oral hypoglycemic drugs; Z79.899 Other long term (current) drug therapy; Z88.2 Allergy status to sulfonamides; Z91.018 Allergy to other foods
CPT/HCPCS: 0241U; 36410; 36415; 71045; 71250; 72128; 74176; 80048; 80053; 81001; 82947; 83605; 83735; 83880; 84484; 85025; 86140; 87040; 87077; 87086; 87088; 87186; 87230; 93005; 96361; 96365; 96366; 96367; 96372; 96375; 96376; 99222; 99239; 99285-25; A9270-GY; G0378; J0696; J1650; J1815; J2543; J3370; J3475; J3490; J7030

== ENCOUNTER 2025-03-29 20:03 | Emergency (ER) | payer MEDICARE ==
[2025-03-29] MEDS ORDERED: Sodium Chloride 0.9% 10 ML Syringe FLUSH PRN (20:20)
[2025-03-29 20:21] VITALS: BP 197/92; PULSE 112
[2025-03-29] MEDS: LORazepam 2 MG/ML SDV IVPUSH ONE (20:31)
[2025-03-29 20:33] LABS: BASOPHILS ABSOLUTE AUTO 0.1 x10-3/uL (0.0-0.3); BASOPHILS PERCENT AUTO 0.8 % (0.3-3.8); EOSINOPHILS ABSOLUTE AUTO 0.5 x10-3/uL (0.0-0.6); EOSINOPHILS PERCENT AUTO 4.3 % (0.1-6.8); LYMPHOCYTES ABSOLUTE AUTO 1.0 x10-3/uL (0.5-4.5); LYMPHOCYTES PERCENT AUTO 8.3 % (15.8-45.3); MEAN PLATELET VOLUME 6.5 fL (6.7-11.0); MONOCYTES ABSOLUTE AUTO 0.4 x10-3/uL (0.0-1.2); MONOCYTES PERCENT AUTO 3.4 % (5.5-15.2); NEUTROPHILS ABSOLUTE AUTO 9.7 x10-3/uL (1.7-6.9); NEUTROPHILS PERCENT AUTO 83.2 % (40.3-71.8); PLATELET COUNT,PLT 345 x10(3)uL (117-477); RED BLOOD CELL COUNT 4.54 x10(6)uL (3.90-5.90); RED CELL DISTRIBUTION WIDTH 15.8 % (12.4-15.0); WHITE BLOOD CELL COUNT,WBC 11.6 x10-3/uL (3.2-10.1)
[2025-03-29 20:40] LABS: BLOOD UREA NITROGEN,BUN 21 mg/dL (7-18); CARBON DIOXIDE,CO2 28 mmol/L (21-32); CHLORIDE,CL 102 mmol/L (100-110); CREATININE 1.5 mg/dL (0.70-1.30); ESTIMATED GFR 50 mL/min (>60); GLUCOSE RANDOM 223 mg/dL (80-116); POTASSIUM,K 4.1 mmol/L (3.5-5.3); SODIUM,NA 140 mmol/L (135-145)
[2025-03-29 20:46] LABS: A/G RATIO 0.9; ALANINE AMINOTRANSFERASE,ALT 29 U/L (12-36); ASPARTATE AMNIOTRANSFERASE,AST 17 IU/L (5-25); BILIRUBIN TOTAL 0.6 mg/dL (0.1-1.3); PROTEIN TOTAL,TP 7.5 g/dL (6.0-8.0)
[2025-03-29 21:21] LABS: GLUCOSE,URINE NORMAL (NORMAL); OCCULT BLOOD,URINE NEGATIVE (NEGATIVE)
[2025-03-29 21:22] LABS: APPEARANCE,URINE SLIGHTLY CLOUDY (CLEAR)
[2025-03-29 21:29] LABS: SQUAMOUS EPITHELIAL CELLS,UR RARE (NS,R,O)
[2025-03-29] MEDS: Iopamidol 755 Mg/ML 100 ML Bottle IV SCH (21:45)
== END 2025-03-29 23:00 | disposition home or self-care (01) ==
LOC: FB.ED 20:03
DX: F41.9 Anxiety disorder, unspecified (principal); I10 Essential (primary) hypertension; J45.909 Unspecified asthma, uncomplicated; E11.9 Type 2 diabetes mellitus without complications; E66.9 Obesity, unspecified; Z79.84 Long term (current) use of oral hypoglycemic drugs; Z79.899 Other long term (current) drug therapy; Z88.2 Allergy status to sulfonamides; Z91.018 Allergy to other foods
CPT/HCPCS: 36415; 71045; 71275; 80053; 81001; 83880; 84484; 85025; 85379; 87086; 87186; 93005; 96374; 96375; 99284; J0696; J2060; Q9967